=== PATIENT | female | born 1980 | race Caucasian/White ===

== ENCOUNTER 2023-08-27 20:28 | Emergency (ER) | payer BC ==
[~2023-08-27] VITALS: Ht 175.3 cm; Wt 90.9 kg
[2023-08-27 20:41] VITALS: TEMP 97.7
[2023-08-27] MEDS ORDERED: Ketorolac 30 MG/ML VIAL IV ONE (21:15)
[2023-08-27] MEDS ORDERED: Ondansetron 4 MG/2 ML VIAL IV ONE (21:15)
[2023-08-27] MEDS ORDERED: NS 1,000 ML IV ONE (21:15)
[2023-08-27 21:19] LABS: URINE APPEARANCE CLOUDY (CLEAR/HAZY); URINE BLOOD NEGATIVE (NEGATIVE); URINE COLOR YELLOW (YELLOW); URINE GLUCOSE NEGATIVE (NEGATIVE); URINE KETONE TRACE (NEGATIVE); URINE NITRATE NEGATIVE (NEGATIVE); URINE PROTEIN(semi-quant) NEGATIVE (NEGATIVE)
[2023-08-27 21:21] LABS: COLLECTION METHOD CLEAN CATCH
[2023-08-27 21:31] LABS: BASO # 0.1 K/mm3 (0.0-0.2); BASO % 0.7 % (0.0-2.0); EOS # 0.1 K/mm3 (0.0-0.7); EOS % 1.2 % (0.0-4.0); GRAN % 60.8 % (42.2-75.2); HEMATOCRIT 40.9 % (37.0-47.0); HEMOGLOBIN 14.6 g/dl (12.5-16.0); LYMPH # 3.5 K/mm3 (1.2-3.4); LYMPH % 30.1 % (20.0-51.0); MEAN CELL VOLUME 93 fl (80.0-100.0); MEAN CORPUSCULAR HEMOGLOBIN 33 pg (27-31); MEAN CORPUSCULAR HGB CONC 36 g/dl (33.0-37.0); MONO # 0.8 K/mm3 (0.1-0.6); MONO % 6.9 % (1.7-9.3); PLATELET COUNT 278 K/mm3 (130-400); REDCELL DISTRIBUTION WIDTH-CV 11.8 % (11.5-14.5)
[2023-08-27 21:44] LABS: ALBUMIN 3.7 g/dL (3.5-5.0); BILIRUBIN,TOTAL 0.3 mg/dL (0.2-1.2); CALCIUM 9.7 mg/dL (8.4-10.2); CREATININE, serum 0.84 mg/dL (0.57-1.11); POTASSIUM 3.5 mEq/L (3.5-4.5); TOTAL PROTEIN 7.3 g/dl (6.2-8.1)
[2023-08-27] MEDS ORDERED: cefTRIAXone 1 G in Water For Injection,Sterile 10 ML IV ONE (22:00)
[2023-08-27] MEDS ORDERED: droPERidol 2.5 MG/ML 2 ML VIAL IV ONE (22:00)
[2023-08-27] MEDS ORDERED: Iohexol 300 - 100 ML VIAL IV ONE (22:47)
[2023-08-27] MEDS ORDERED: NS 100 ML IV SCH (22:48)
[2023-08-27] MEDS ORDERED: CEFTIN500 MG PO (23:56)
[2023-08-28 00:06] VITALS: BP 141/87; PULSE 87
== END 2023-08-28 00:06 | disposition home or self-care (01) ==
LOC: COL.ER 20:28
PROVIDERS: Nurse Practitioner Primary Care
DX: N39.0 Urinary tract infection, site not specified (principal); K59.00 Constipation, unspecified; R11.0 Nausea; F17.210 Nicotine dependence, cigarettes, uncomplicated
CPT/HCPCS: J0696; J1790; J1885; J2405; J7030; Q9967